=== PATIENT | male | born 1950 | race Caucasian/White ===

== ENCOUNTER 2025-08-26 09:36 | Outpatient (OUT) | payer MEDICARE, OTHER, SELFPAY ==
--- OUTSIDE RECORDS SUMMARY | 2025-08-25 13:50 | XMS_ITS | Patient Health Record ---
Author Organization [facility] Address [address], [place] [id number] Care Team Providers Care Staking Technician Name Role Phone Oscar Lindsay Primary Care Provider [phone] Amaury Larry Unavailable [phone] Lali Guadarrama Unavailable [phone] Allergies Allergen (clinical drug ingredient) Drug/Non Drug Allergy documented on EMR Reaction Allergy Type Onset Date Status prednisone Prednisone Anxiety Drug Allergy Active Results Component Value Reference Range Flag Notes Hemoglobin [id number]-[id number] Reviewed date:03/01/2025 06:05:55 AM Interpretation:6.2 Performing Lab:[facility], [facility], Phone - [phone], Director - PhDIsabell Notes/Report: Clinical Information:SRC: Hemoglobin A1c 6.2 4.8-5.6 % H . Prediabetes: 5.7 - 6.4 Diabetes: >6.4 Glycemic control for adults with diabetes: <7.0 CBC With Differential/Platel et-[id number] Reviewed date:03/01/2025 06:05:55 AM Interpretation:nl Performing Lab:[facility] [address], [place], Phone - [phone], Director - PhDRicha Notes/Report: Clinical Information:SRC: WBC 8.3 3.4-10.8 x10E3/uL RBC4.904.14-5.80 x10E6/tSSrfecggfqe71.513.0-17.7 g/pTFhayjnqzkw26.537.5-51.0 % FKX4248-72 fLMCH29.626.6-33.0 euTPYP46.931.5-35.7 g/dLRDW14.211.6-15.4 % Cglvinwip376065-739 x10E3/tCSqpflnhbovr90Vnv Estab. %Cacfif35Ypo Estab. % Iwlqcmbkd7Pch Estab. %Sqf1Jqn Estab. %Dstzz9Pva Estab. %Neutrophils (Absolute) 5.01.4-7.0 x10E3/uLLymphs (Absolute)2.30.7-3.1 x10E3/uLMonocytes(Absolute)0.6 0.1-0.9 x10E3/uLEos (Absolute)0.30.0-0.4 x10E3/uLBaso (Absolute)0.10.0-0.2 x10E3/uLImmature Yotcwnhbbhbo8Qod Estab. %Immature Grans (Abs)0.10.0-0.1 x10E3/uLCBC With Differential/Platelet-[id number] Reviewed date:06/01/2025 06:11:27 AM Interpretation: Performing Lab:[facility] [place], [address] [facility], [place], Phone - [phone], Director - Sary Notes/Report:WBC8.03.4-10.8 x10E3/uLRBC4.684.14-5.80 x10E6/mHCznwqzxedv65.313.0- 17.7 g/pIAcuftzhroi27.237.5-51.0 %LFH6272-48 fLMCH30.626.6-33.0 lcQLHS06.431.5- 35.7 g/dLRDW13.811.6-15.4 %Ijfyzxfsr077083-165 x10E3/gFIuxrtzoqges72Vvu Estab. % Lwnbta57Cpm Estab. %Hgbckmdow1Ios Estab. %Eib4Sbd Estab. %Dshre1Csd Estab. % Neutrophils (Absolute)4.91.4-7.0 x10E3/uLLymphs (Absolute)2.10.7-3.1 x10E3/uL Monocytes(Absolute)0.70.1-0.9 x10E3/uLEos (Absolute)0.30.0-0.4 x10E3/uLBaso (Absolute)0.10.0-0.2 x10E3/uLImmature Eevdhngeoknm9Rlc Estab. %Immature Grans (Abs)0.00.0-0.1 x10E3/uLVitamin D, 34-Tzigvye-[id number] Reviewed date:03/01/2025 06:05:55 AM Interpretation:Low [facility]forming [facility], [address] [place] [address], Phone - [phone], [facility]/Report: Clinical Information:SRC:Vitamin D, 25-Omvkaol12.130.0-100.0 ng/mLL Vitamin D deficiency has been defined by the [place] of [employer] and an Endocrine Society practice guideline as a level of serum 25-OH vitamin D less than 20 ng/mL (1,2). The Endocrine Society went on to further define vitamin D insufficiency as a level between 21 and 29 ng/mL (2). 1. IOM ([place] of [employer]). 2010. Dietary reference intakes for calcium and D. [place]: The National Academies Press. 2. Angélica MF, Dominguez NC, Nancy HENNING, et al. Evaluation, treatment, and prevention of vitamin D deficiency: an Endocrine Society clinical practice guideline. JCEM. 2010; 96(7):1911-30. HIV Ag/Ab with Reflex-[id number] Reviewed date:03/01/2025 06:05:55 AM Interpretation:Negative Performing Lab:[facility] [place] [address] [place] [address], Phone - [phone], Director - [facility] Notes/Report: Clinical Information:SRC:HIV Ab/p24 Ag ScreenNon ReactiveNon Reactive HIV-1/HIV-2 antibodies and HIV-1 p24 antigen were NOT detected. There is no laboratory evidence of HIV infection. HIV Negative C difficile Toxins A+B, EIA-[id number] Reviewed date:06/15/2025 02:00:05 PM Interpretation: Performing Lab[facility], Phone - [phone], Director - [facility] Notes/Report: Clinical Information:SRC:STC difficile Toxins A+B, EIANegativeNegativeLipid Panel-[id number] Reviewed date:03/01/2025 06:05:55 AM Interpretation:near nl Performing Lab:[facility] [place] [address] [place], [place] [address]ox [facility], Phone - [phone], Director - [facility] Notes/Report: Clinical Information:SRC:Cholesterol, Zzruu777268-536 mg/xYGnmrgcmstqmpe4555-266 mg/dLHHDL Ygwxkaaubyo53>39 mg/dLLVLDL Cholesterol Vrp438-34 mg/dLLDL Chol Calc (NIH)840-99 mg/dLComp. Metabolic Panel (14)-[id number] Reviewed date:03/01/2025 06:05:55 AM Interpretation:GFR 40, creatinine 1.74 Performing Lab:[facility], [address], Phone - [phone], Director - [facility] Notes/Report: Clinical Information:SRC:Cabnozc19561-77 mg/uRFNVO956-20 mg/dLHCreatinine1.74 0.76-1.27 mg/qUNfJGR95>59 mL/min/1.73LBUN/Creatinine Nwiew1553-37Pyyycu655043- 144 mmol/LPotassium4.63.5-5.2 mmol/SLdmxfebl01965-070 mmol/LCarbon Dioxide, Khknh7840-98 mmol/LCalcium8.98.6-10.2 mg/dLProtein, Total6.46.0-8.5 g/dLAlbumin 3.83.8-4.8 g/dLGlobulin, Total2.61.5-4.5 g/dLBilirubin, Total0.40.0-1.2 mg/dL Alkaline Wkmxlnojvrh4254-868 IU/LAST (SGOT)200-40 IU/LALT (SGPT)160-44 IU/LBasic Metabolic Panel (8)-[id number] Reviewed date:06/01/2025 06:11:27 AM Interpretation: Performing Lab:[facility], [address], [place], Phone - [phone], Director - [facility] Notes/Report:Kttrsnc5526-16 mg/sYSNG418-53 mg/dLHCreatinine2.190.76-1.27 mg/dLH eGFR30>59 mL/min/1.73LBUN/Creatinine Wchbq1507-36Jnbfue519559-321 mmol/L Potassium6.13.5-5.2 mmol/BNMrksmncc61934-729 mmol/LCarbon Dioxide, Mrzsr1950-43 mmol/LLCalcium9.48.6-10.2 mg/dLBasic Metabolic Panel (8)-[id number] Reviewed date:03/10/2025 08:23:54 AM Interpretation:stable Performing Lab:[facility] [place], [address] [facility], Phone - [phone], Director - [facility] Notes/Report: Clinical Information:SRC:Pwzgsnx7686-62 mg/jQAZE583-19 mg/dLCreatinine1.590.76- 1.27 mg/pOOfHPL72>59 mL/min/1.73LBUN/Creatinine Nicnb5564-52Rsnnje633170-918 mmol/LPotassium4.63.5-5.2 mmol/TDabgaibs03432-135 mmol/LHCarbon Dioxide, Total21 20-29 mmol/LCalcium8.98.6-10.2 mg/dLThyroid Harney Profile-[id number] Reviewed date:03/01/2025 06:05:55 AM Interpretation:wnl Performing Lab:[facility] [place], [address] [facility], [place], Phone - [phone], Director - [facility] Notes/Report: Clinical Information:SRC:TSH1.1500.450-4.500 uIU/mL No apparent thyroid disorder. Additional testing not indicated. In rare instances, Secondary Hypothyroidism as well as Subclinical Hypothyroidism have been reported in some patients with normal TSH values. XR CHEST 2 VIEWS Reviewed date:04/07/2025 07:42:27 AM Interpretation: Performing Lab: Notes/Report: XR KNEE 1 OR 2 VIEWS BILATERAL Reviewed date:04/07/2025 07:42:27 AM Interpretation: Performing Lab: Notes/Report: HX Colonoscopy Reviewed date:02/23/2025 06:49:29 PM Interpretation:diverticulosis and hyperplastic polyps, tubular adenoma no dysplasia Performing Lab: Notes/Report: diverticulosis and hyperplastic polyps, tubular adenoma no dysplasia Reason For Referral Reason gfr 30 Diagnosis 1 STAGE 3B CHRONIC KID RAMOS DISEASE (N18.32) Referral Organization [facility] Referring Provider First Name Oscar Referring Provider Last Name Angélica Referring Provider Speciality Physician Referred Provider [facility] Referred Provider Specialty Nephrology Referral Priority Routine Referral Appointment Date 07/10/2025 Medications Medication SIG (Take, Route, Frequency, Duration) Notes Start Date End Date Status CeleXA 10 MG Tablet 1 tablet Orally Once a day; Duration: 90 days 02/23/2025tiveLisinopril 10 MG Tablet1 tablet Orally Once a day; Duration: 90 days03/01/2025tiveCeleXA 20 MG Tablet1 tablet Orally Once a day; Duration: 90 days02/23/2025tiveFarxiga 5 MG Tablet1 tablet Orally Once a day; Duration: 04/24/2025tiveEliquis 5 MG Tablet1 tablet Orally twice a day; Duration: 90 daysActiveLoratadine 10 MG Tablet1 tablet Orally Once a day; Duration: 90 days 02/23/2025tiveAdvair Diskus 250-50 MCG/ACT Aerosol Powder Breath Activated1 puff Inhalation Twice a day; Duration: days02/23/2025tiveAlbuterol Sulfate HFA 108 (90 Base) MCG/ACT Aerosol Solution 1 puff as needed Inhalation every 4 hrs; Duration: 90 days As needed for shortness of breath or wheezing ActiveAllopurinol 100 MG Tablet1 tablet Orally Once a day; Duration: 90 days 02/23/2025tiveMetoprolol Tartrate 25 MG Tablet1 tablet with food Orally Twice a day; Duration: 90 daysActiveAtorvastatin Calcium 10 MG Tablet1 tablet Orally Once a day; Duration: 90 days02/23/2025tive Social History Tobacco Use: Social History Observation Description Date Details (start date - stop date) Never Smoker NA - NA Sex Assigned At : Social History Observation Description Sex Assigned At Male Social History Social DeterminantsSocial InfoQuestionAnswerNotesPRAPAREDate Completed/Updated: 02/23/2025What is your current housing situation?I have housingAre you worried about losing your housing?NoWhat is the highest level of school that you have finished?More than high schoolWhat is your current work situation?Otherwise unemployed but not seeking work (ex. student, retired, disabled, unpaid primary animal care assistant)In the past year, have you or any family members you live with been unable to get any of the following when it was really needed? Check all that applyI do not have problems meeting my needsHas lack of transportation kept you from medical appointments, meetings, work or from getting things needed for daily living?NoHow often do you see or talk to people that you care about and feel close to? (For example: talkingto friends on the phone, visiting friends or family, going to oriental orthodox or club meetings)More than 5 times a weekHow stressed are you? Stress is when someone feels tense, nervous, anxious, or can't sleep at nightbecause their mind is troubledNot at allIn the past year have you spent more than 2 nights in a row in a prison, intermediate, fpc center, orjuvenile correctional facility?Yes? What was your release date?5Are you a refugee?NoWhat country are you from?[place]Do you feel physically and emotionally safe where you currently live?YesIn the past year, have you been afraid of your partner or ex-partner?NoPRAPARE Score:3Drugs/Alcohol:Social Info QuestionAnswerNotesDrugsHave you used drugs other than those for medical reasons in the past 12 months?NoDrug/Alcohol:Social InfoQuestionAnswerNotesAUDIT-C (Standard)Did you have a drink containing alcohol in the past year?NoPoints0 InterpretationNegativeTobacco Use:Social InfoQuestionAnswerNotesTobacco Control (Standard)Tobacco use:NonsmokerTobacco use other than smoking:Are you an other tobacco user?NoAdditional DetailsCategorySocial InfoOptionsDetailsDrugs/Alcohol: Do you smoke marijuana?Denies Problems Problem Type SNOMED Code ICD Code Onset Dates Problem Status W/U Status Risk Notes Problem Prediabetes (114504711) Prediabetes (R73. 03) ActiveconfirmedProblemAllergic rhinitis (13285890)ALLERGIC RHINITIS (J30.9) ActiveconfirmedProblemChronic kidney disease stage 3(Confirmed) (N18.30)Active confirmedProblemAnxiety (42230237)ANXIETY (F41.9)ActiveconfirmedProblemCHRONIC KNEE PAIN (M25.569)ActiveconfirmedProblemAtrial fibrillation (disorder) (66785976)AFIB (I48.91)ActiveconfirmedProblemVitamin D deficiency (02612966) VITAMIN D DEFICIENCY (E55.9)ActiveconfirmedProblemHypertension (72505950) HYPERTENSION (I10)ActiveconfirmedProblemChronic kidney disease stage 3B (disorder) (727688687)STAGE 3B CHRONIC KIDNEY DISEASE (N18.32)Activeconfirmed ProblemCOPD - Chronic obstructive pulmonary disease (75695712)COPD (CHRONIC OBSTRUCTIVE PULMONARY DISEASE) (J44.9)ActiveconfirmedProblemMorbid obesity (278482001)MORBID OBESITY (E66.01)ActiveconfirmedProblemGout (03751859)GOUT (M10.9)ActiveconfirmedProblemAsthma (893893156)Asthma (J45.909)Activeconfirmed ProblemHistory of polyp of colon (situation) (500665573)Personal history of colonic polyps (L31381)2Activeconfirmed Vital Signs Heart Rate 41 /min 05/31/2025 Bnorfftmqfk88.8 degrees Hzxjqjzand27/01/2025Respiratory Rate18 /min03/09/2025 Blood pressure yivgbfbxm09 mm Hg05/31/20253001Hkfmqcdo44 %05/31/2025Weight-kg119.48 kg05/31/20252052Avrvtk29 in05/31/2025lood pressure vmousnta946 mm Hg05/31/2025 Adrelw458.4 lbs05/31/2025BMI51.44 kg/m205/31/2025 Procedures Procedure Date Ordered Date Performed Result Body Sit e In House EKG 05/31/2025 05/31/[address] tang note Encounters Encounter Location Date Provider Diagnosis [address] [place], [place] [id number] 02/23/2025 Lali Guadarrama Annual wellness visi t Z00.00 ; CHRONIC KNEE PAIN M25.569 ; ANXIETY F41.9 ; ALLERGIC RHINITIS J30.9 ; COPD (CHRONIC OBSTRUCTIVE PULMONARY DISEASE) J44.9 ; Asthma J45.909 ; GOUT M10.9 ; HYPERTENSION I10 ; SCREENING FOR DIABETES MELLITUS Z13.1 ; SCREENING FOR THYROID DISORDER Z13.29 ; Personal history of colonic polyps B94424 ; COLON CANCER SCREENING Z12.11 ; TOBACCO NON-USER Z78.9 ; MORBID OBESITY E66.01 ; DIETARY COUNSELING Z71.3 ; NEGATIVE DEPRESSION SCREENING Z13.31 and Encounter for examination of blood pressure without abnormal findings Z01.30 [facility] [address] [place], [place] [id number] 03/09/2025 Lali Guadarrama HYPERTENSION I10 ; Chronic kidney disease stage 3(Confirmed) N18.30 ; Unspecified injury of muscle and tendon of front wall of thorax, initial encounter S29.001A ; TOBACCO NON-USER Z78.9 ; MORBID OBESITY E66.01 ; DIETARY COUNSELING Z71.3 and Encounter for examination of blood pressure without abnormal findings Z01.[address] [id number] 04/24/2025 Oscar Cola HYPERTENSION I10 ; Prediabetes R73.03 ; MORBID OBESITY E66.01 ; DIETARY COUNSELING Z71.3 ; Encounter for examination of blood pressure without abnormal findings Z01.30 and KNEE PAIN M25.[address] [id number] 05/31/2025 Oscar Cola AFIB I48.91 ; Encounter for examination of blood pressure without abnormal findings Z01.30 ; MORBID OBESITY E66.01 and DIETARY COUNSELING Z71.[address] [id number] 03/01/2025 Lali Guadarrama Chronic kidney disea se stage 3(Confirmed) N18.30 and VITAMIN D DEFICIENCY E55.9 [facility] [address] [place] [id number] 03/10/2025 Lali Guadarrama [facility], [place] [id number]/31/2025David Cola Chronic kidney disease stage 3(Confirmed) N18.[address] [id number]/07/2025David ColaSTAGE 3B CHRONIC KIDNEY DISEASE N18.32 [facility] [place] [id number]/19/2025David ColaC. DIFFICILE DIARRHEA A04.72[facility] [place] [id number]/27/2025David ColaAFIB I48.91 ; COPD (CHRONIC OBSTRUCTIVE PULMONARY DISEASE) J44.9 ; HYPERTENSION I10 ; ALLERGIC RHINITIS J30.9 ; GOUT M10.9 and ANXIETY F41.9[facility], [place] [id number]/ Oscar [facility]aresHenry [facility] [address], [place] [id number]/ [place] [id number], [place] [id number]/ Oscar Lindsay Assessments Encounter Date Diagnosis (ICD Code) Assessment Notes Treatment Notes Treatment Clinical Notes Section Notes 05/31/2025 AFIB (ICD-10 - I48.91) ekg - sinus jxvkmkrjxve33/07/2025STAGE 3B CHRONIC KIDNEY DISEASE (ICD-10 - N18.32)04/24/2025Prediabetes (ICD-10 - R73.03)04/24/2025HYPERTENSION (ICD-10 - I10)06/21/2025FIB (ICD-10 - I48.91)02/23/2025nnual wellness visit (ICD-10 - Z00.00)Patient Education Given06/13/2025. DIFFICILE DIARRHEA (ICD-10 - A04.72) 02/23/2025HRONIC KNEE PAIN (ICD-10 - M25.569)Suspect OA.Patient Education Given 03/01/2025hronic kidney disease stage 3(Confirmed) (ICD-10 - N18.30)Thiazides are less effective at GFR <40. Lisinopril indicated for renal protection and BP control in CKD. Reassess BP & BMP in 1-2 weeks03/01/2025VITAMIN D DEFICIENCY (ICD-10 - E55.9)05/25/2025hronic kidney disease stage 3(Confirmed) (ICD-10 - N18.30)03/09/2025hronic kidney disease stage 3(Confirmed) (ICD-10 - N18.30) Patient counseling provided. Will continue to monitor clinically and manage BP. Advise low sodium diet. Avoid NSAIDs (naproxen or ibuprofen).Patient Education Given03/09/2025HYPERTENSION (ICD-10 - I10)BP appears well-controlled. Goal <130/80. Continue current medications.Patient Education Given04/24/2025MORBID OBESITY (ICD-10 - E66.01)03/09/2025Unspecified injury of muscle and tendon of front wall of thorax, initial encounter (ICD-10 - S29.001A)Recommend otc acetaminophen 500mg every 6-8 h. Gradual return to activity as tolerated. Avoid heavylifting twisting or straining for 1-2 weeks. Reassess in 2 weeks if symptoms persist or worsen.Patient Education Given05/31/2025Encounter for examination of blood pressure without abnormal findings (ICD-10 - Z01.30) 02/23/2025NXIETY (ICD-10 - F41.9)Controlled on current medications.Patient Education Given06/21/2025OPD (CHRONIC OBSTRUCTIVE PULMONARY DISEASE) (ICD-10 - J44.9)06/21/2025HYPERTENSION (ICD-10 - I10)05/31/2025MORBID OBESITY (ICD-10 - E66.01)02/23/2025LLERGIC RHINITIS (ICD-10 - J30.9)Patient Education Given 04/24/2025DIETARY COUNSELING (ICD-10 - Z71.3)03/09/2025TOBACCO NON-USER (ICD-10 - Z78.9)Smoking assessment completePatient Education Given03/09/2025MORBID OBESITY (ICD-10 - E66.01)Patient Education Given02/23/2025OPD (CHRONIC OBSTRUCTIVE PULMONARY DISEASE) (ICD-10 - J44.9)Patient Education Given06/21/2025 ALLERGIC RHINITIS (ICD-10 - J30.9)05/31/2025DIETARY COUNSELING (ICD-10 - Z71.3) 04/24/2025Encounter for examination of blood pressure without abnormal findings (ICD-10 - Z01.30)04/24/2025KNEE PAIN (ICD-10 - M25.569)06/21/2025GOUT (ICD-10 - M10.9)02/23/2025sthma (ICD-10 - J45.909)WIll add advair diskusPatient Education Given03/09/2025DIETARY COUNSELING (ICD-10 - Z71.3)Patient Education Given 03/09/2025Encounter for examination of blood pressure without abnormal findings (ICD-10 - Z01.30)Patient Education Given06/21/2025NXIETY (ICD-10 - F41.9) 02/23/2025GOUT (ICD-10 - M10.9)Patient Education Given02/23/2025HYPERTENSION (ICD-10 - I10)Patient Education Given02/23/2025SCREENING FOR DIABETES MELLITUS (ICD-10 - Z13.1)Patient Education Given02/23/2025SCREENING FOR THYROID DISORDER (ICD-10 - Z13.29)Patient Education Given02/23/2025Personal history of colonic polyps (ICD-10 - I60741)Dx per Colonoscopy 01/[address] [facility]. STIVEN for full report and subsequent recommendations.Patient Education Given 02/23/2025OLON CANCER SCREENING (ICD-10 - Z12.11)Patient Education Given 02/23/2025TOBACCO NON-USER (ICD-10 - Z78.9)Patient Education Given02/23/2025 MORBID OBESITY (ICD-10 - E66.01)Patient Education Given02/23/2025DIETARY COUNSELING (ICD-10 - Z71.3)Patient Education Given02/23/2025NEGATIVE DEPRESSION SCREENING (ICD-10 - Z13.31)Patient Education Given02/23/2025Encounter for examination of blood pressure without abnormal findings (ICD-10 - Z01.30)Patient Education Given03/09/2025OtherLearning about healthy weight education provided Patient Education ProvidedPatient Education Given04/24/2025OtherLearning about healthy weight education provided Patient Education Gdbfjfem79/06/2025Other Learning about healthy weight education provided Patient Education Provided Plan Of Treatment Next Appt Details Provider Name:Oscar Lindsay, 11:30:00 AM, [facility] [address], [place], [id number], Insurance Providers Payer Name Payer Address Payer Phone Subscriber Number Group Number Insured Name Patient Relationship to Insured Coverage Start Date Coverage End Date D [facility] [employer] [address] [address] [place], [place] [id number] Kumar Roche Self - patient is the insured 5 M [facility] SupplementPO [address] [place] [address] [id number], KennethSphilomena - patient is the [id number] [place] MedicaidPO [address] [place] [id number] Girish Rochephilomena - patient is the [id number] 2025M Medicaid MedicalPO [address] [place], [place] [id number], KennethSphilomena - patient is the [id number] Medicare CGS Part A PrimaryPO Box [place], [place] [id number], KennethSphilomena - patient is the [id number] Medical (General) History Medical History History ICD Code HTN GoutCKDAsthmaCOPDSinusitisSurgical History Surgery Date(Month/Year) Lithroplasty Umbilical Hernia
--- OUTSIDE RECORDS SUMMARY | 2025-08-26 09:39 | XMS_ITS | Patient Health Record ---
Author Organization [facility] Address [address] [place], [place] [address] Care Team Providers Care Supervisory Training Specialist Name Role Phone Oscar Lindsay Primary Care Provider [phone] Amaury Larry Unavailable [phone] Lali Guadarrama Unavailable [phone] Allergies Allergen (clinical drug ingredient) Drug/Non Drug Allergy documented on EMR Reaction Allergy Type Onset Date Status prednisone Prednisone Anxiety Drug Allergy Active Results Component Value Reference Range Flag Notes Hemoglobin [id number] Reviewed date:03/01/2025 06:05:55 AM Interpretation:6.2 Performing Lab:[facility], [address] [employer] [facility], Phone - [phone], Director - PhDIsabell Notes/Report: Clinical Information:SRC: Hemoglobin A1c 6.2 4.8-5.6 % H . Prediabetes: 5.7 - 6.4 Diabetes: >6.4 Glycemic control for adults with diabetes: <7.0 CBC With Differential/Platel et-[id number] Reviewed date:03/01/2025 06:05:55 AM Interpretation:nl Performing Lab:[facility], [address], [place], Phone - [phone], Director - PhDRicha Notes/Report: Clinical Information:SRC: WBC 8.3 3.4-10.8 x10E3/uL RBC4.904.14-5.80 x10E6/bFUymujlmbjn23.513.0-17.7 g/cDAvokuuvbkz75.537.5-51.0 % KKR7512-41 fLMCH29.626.6-33.0 lpJFGP60.931.5-35.7 g/dLRDW14.211.6-15.4 % Kaxoyplth384034-118 x10E3/oKNicupeextoo19Ypa Estab. %Chahzz62Oep Estab. % Gwwaastvf6Wev Estab. %Uyu4Qts Estab. %Lhyvn8Jgw Estab. %Neutrophils (Absolute) 5.01.4-7.0 x10E3/uLLymphs (Absolute)2.30.7-3.1 x10E3/uLMonocytes(Absolute)0.6 0.1-0.9 x10E3/uLEos (Absolute)0.30.0-0.4 x10E3/uLBaso (Absolute)0.10.0-0.2 x10E3/uLImmature Sbbdfsjkvlvb8Hmn Estab. %Immature Grans (Abs)0.10.0-0.1 x10E3/uLCBC With Differential/Platelet-[id number] Reviewed date:06/01/2025 06:11:27 AM Interpretation: Performing Lab:[facility] [place], [address] [facility], [place], Phone - [phone], Director - Sary Notes/Report:WBC8.03.4-10.8 x10E3/uLRBC4.684.14-5.80 x10E6/uYBsagtkiuag52.313.0- 17.7 g/eWIdnzturmxf59.237.5-51.0 %LRX4223-23 fLMCH30.626.6-33.0 wmBUZE81.431.5- 35.7 g/dLRDW13.811.6-15.4 %Suhxnziik934285-663 x10E3/rKPcsroyibtfx77Ngw Estab. % Hrvevs26Gbv Estab. %Kzpaccvhj6Lws Estab. %Zns7Jlp Estab. %Svwwb4Yjg Estab. % Neutrophils (Absolute)4.91.4-7.0 x10E3/uLLymphs (Absolute)2.10.7-3.1 x10E3/uL Monocytes(Absolute)0.70.1-0.9 x10E3/uLEos (Absolute)0.30.0-0.4 x10E3/uLBaso (Absolute)0.10.0-0.2 x10E3/uLImmature Zgnmvzkksdew9Kuk Estab. %Immature Grans (Abs)0.00.0-0.1 x10E3/uLVitamin D, 50-Hznlrxj-[id number] Reviewed date:03/01/2025 06:05:55 AM Interpretation:Low Performing Lab:[facility], [address] [place] [address], Phone - [phone], Director - [facility] Notes/Report: Clinical Information:SRC:Vitamin D, 25-Gtywfkh61.130.0-100.0 ng/mLL Vitamin D deficiency has been defined by the [place] of [employer] and an Endocrine Society practice guideline as a level of serum 25-OH vitamin D less than 20 ng/mL (1,2). The Endocrine Society went on to further define vitamin D insufficiency as a level between 21 and 29 ng/mL (2). 1. IOM ([place] of Medicine). 2010. Dietary reference intakes for calcium and D. [place]: The National Academies Press. 2. Angélica MF, Dominguez NC, Nancy HENNING, et al. Evaluation, treatment, and prevention of vitamin D deficiency: an Endocrine Society clinical practice guideline. JCEM. 2010; 96(7):1911-30. HIV Ag/Ab with Reflex-[id number] Reviewed date:03/01/2025 06:05:55 AM Interpretation:Negative Performing Lab:[facility] [place] [facility] [address] [place] [address], Phone - [phone], Director - Psychiatric Notes/Report: Clinical Information:SRC:HIV Ab/p24 Ag ScreenNon ReactiveNon Reactive HIV-1/HIV-2 antibodies and HIV-1 p24 antigen were NOT detected. There is no laboratory evidence of HIV infection. HIV Negative C difficile Toxins A+B, EIA-[id number] Reviewed date:06/15/2025 02:00:05 PM Interpretation: Performing Lab:[facility], Phone - [phone], Director - [facility] Notes/Report: Clinical Information:SRC:STC difficile Toxins A+B, EIANegativeNegativeLipid Panel-[id number] Reviewed date:03/01/2025 06:05:55 AM Interpretation:near nl Performing Lab:[facility] [place] [facility] [address] [place], [place] [address]ox [facility], Phone - [phone], Director - [facility] Notes/Report: Clinical Information:SRC:Cholesterol, Sgynf152059-442 mg/lKXorawulzefmfi9355-208 mg/dLHHDL Eiawxowrtro81>39 mg/dLLVLDL Cholesterol Atk375-51 mg/dLLDL Chol Calc (NIH)840-99 mg/dLComp. Metabolic Panel ([id number] Reviewed date:03/01/2025 06:05:55 AM Interpretation:GFR 40, creatinine 1.74 Performing Lab:[facility], [address] [employer] [facility], Phone - [phone], Director - [facility] Notes/Report: Clinical Information:SRC:Dkernny25840-18 mg/eBRMRU203-91 mg/dLHCreatinine1.74 0.76-1.27 mg/mTGwPNN41>59 mL/min/1.73LBUN/Creatinine Zlird3708-12Qlfvqw937746- 144 mmol/LPotassium4.63.5-5.2 mmol/EEnvnjtjy73999-538 mmol/LCarbon Dioxide, Gqvpr3843-48 mmol/LCalcium8.98.6-10.2 mg/dLProtein, Total6.46.0-8.5 g/dLAlbumin 3.83.8-4.8 g/dLGlobulin, Total2.61.5-4.5 g/dLBilirubin, Total0.40.0-1.2 mg/dL Alkaline Wtktybdbhju9686-479 IU/LAST (SGOT)200-40 IU/LALT (SGPT)160-44 IU/LBasic Metabolic Panel (8)-[id number] Reviewed date:06/01/2025 06:11:27 AM Interpretation: Performing Lab:[facility], [address], [place], Phone - [phone], Director - [facility] Notes/Report:Mrmmvoh4984-42 mg/mXCGM080-66 mg/dLHCreatinine2.190.76-1.27 mg/dLH eGFR30>59 mL/min/1.73LBUN/Creatinine Efhmu8102-82Bqytmi374332-689 mmol/L Potassium6.13.5-5.2 mmol/CSNzjaizza13060-045 mmol/LCarbon Dioxide, Emmnc9731-37 mmol/LLCalcium9.48.6-10.2 mg/dLBasic Metabolic Panel (8)-[id number] Reviewed date:03/10/2025 08:23:54 AM Interpretation:stable Performing Lab:[facility] [place], [address] [facility], Phone - [phone], Director - Psychiatric Notes/Report: Clinical Information:SRC:Ihudhnb1514-25 mg/lHLXM778-65 mg/dLCreatinine1.590.76- 1.27 mg/rOCmSXF22>59 mL/min/1.73LBUN/Creatinine Pjeqc4115-00Tdslur255870-200 mmol/LPotassium4.63.5-5.2 mmol/FUplejbtf05653-617 mmol/LHCarbon Dioxide, Total21 20-29 mmol/LCalcium8.98.6-10.2 mg/dLThyroid Rabun Profile-[id number] Reviewed date:03/01/2025 06:05:55 AM Interpretation:wnl Performing Lab:[facility] [place], [address] [facility], [place], Phone - [phone], Director - Psychiatric Notes/Report: Clinical Information:SRC:TSH1.1500.450-4.500 uIU/mL No apparent thyroid [...] CHRONIC KID RAMOS DISEASE (N18.32) Referral Organization [facility] Referring Provider First Name Oscar Referring Provider Last Name Agnélica Referring Provider Speciality Physician Referred Provider Kidney [...] work (ex. 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 Stress is when someone feels tense, nervous, anxious, or can't sleep at nightbecause their mind is troubledNot at allIn the past year have you spent more than 2 nights in a row in a care home, shelter, snf center, orjuvenile correctional facility?Yes? What was your [...] Status W/U Status Risk Notes Problem Prediabetes (832004033) Prediabetes (R73. 03) ActiveconfirmedProblemAllergic rhinitis (44418122)ALLERGIC RHINITIS (J30.9) ActiveconfirmedProblemChronic kidney disease stage 3(Confirmed) (N18.30)Active confirmedProblemAnxiety (80612862)ANXIETY (F41.9)ActiveconfirmedProblemCHRONIC KNEE PAIN (M25.569)ActiveconfirmedProblemAtrial fibrillation (disorder) (40359610)AFIB (I48.91)ActiveconfirmedProblemVitamin D deficiency (65592926) VITAMIN D DEFICIENCY (E55.9)ActiveconfirmedProblemHypertension (32226231) HYPERTENSION (I10)ActiveconfirmedProblemChronic kidney disease stage 3B (disorder) (167545133)STAGE 3B CHRONIC KIDNEY DISEASE (N18.32)Activeconfirmed ProblemCOPD - Chronic obstructive pulmonary disease (21596052)COPD (CHRONIC OBSTRUCTIVE PULMONARY DISEASE) (J44.9)ActiveconfirmedProblemMorbid obesity (123554170)MORBID OBESITY (E66.01)ActiveconfirmedProblemGout (04296272)GOUT (M10.9)ActiveconfirmedProblemAsthma (904932539)Asthma (J45.909)Activeconfirmed ProblemHistory of polyp of colon (situation) (192659770)Personal history of colonic polyps (A81990)2Activeconfirmed Vital Signs Heart Rate 41 /min 05/31/2025 Lhavjikssln04.8 degrees Paqadvedey28/01/2025Respiratory Rate18 /min03/09/2025 Tqyyhgnd79 %05/31/2025lood pressure fwuvazjkz84 mm Hg05/31/2025Weight-kg119.48 kg05/31/20250609Pcdzwf09 in05/31/2025lood pressure mm Hg05/31/2025 Kcvnvp254.4 lbs05/31/2025BMI51.44 kg/m205/31/2025 Procedures Procedure Date Ordered Date Performed Result Body Sit e In House EKG 05/31/2025 05/31/[address] tang note Encounters Encounter Location Date Provider Diagnosis [address] [place], [place] [phone] 02/23/2025 Lali Bondson Annual wellness visi t Z00.00 ; CHRONIC KNEE PAIN M25.569 ; ANXIETY F41.9 ; ALLERGIC RHINITIS J30.9 ; COPD (CHRONIC OBSTRUCTIVE PULMONARY DISEASE) J44.9 ; Asthma J45.909 ; GOUT M10.9 ; HYPERTENSION I10 ; SCREENING FOR DIABETES MELLITUS Z13.1 ; SCREENING FOR THYROID DISORDER Z13.29 ; Personal history of colonic polyps Y35514 ; COLON CANCER SCREENING Z12.11 ; TOBACCO NON-USER Z78.9 ; MORBID OBESITY E66.01 ; DIETARY COUNSELING Z71.3 ; NEGATIVE DEPRESSION SCREENING Z13.31 and Encounter for examination of blood pressure without abnormal findings Z01.30 [facility] [address] [place], [place] [phone] 03/09/2025 Lali Guadarrama HYPERTENSION I10 ; Chronic kidney disease stage 3(Confirmed) N18.30 ; Unspecified injury of muscle and tendon of front wall of thorax, initial encounter S29.001A ; TOBACCO NON-USER Z78.9 ; MORBID OBESITY E66.01 ; DIETARY COUNSELING Z71.3 and Encounter for examination of blood pressure without abnormal findings Z01.[address] [id number] 04/24/2025 Oscar Cola HYPERTENSION I10 ; Prediabetes R73.03 ; MORBID OBESITY E66.01 ; DIETARY COUNSELING Z71.3 ; Encounter for examination of blood pressure without abnormal findings Z01.30 and KNEE PAIN M25.[address] [id number] 05/31/2025 Oscar Cola AFIB I48.91 ; Encounter for examination of blood pressure without abnormal findings Z01.30 ; MORBID OBESITY E66.01 and DIETARY COUNSELING Z71.[address] [id number] 03/01/2025 Lali Guadarrama Chronic kidney disea se stage 3(Confirmed) N18.30 and VITAMIN D DEFICIENCY E55.9 [facility] [address], [place] [id number] 03/10/2025 Lailema Guadarrama [facility], [place] [id number]/31/2025David Cola Chronic kidney disease stage 3(Confirmed) N18.[address] [id number]/07/2025David ColaSTAGE 3B CHRONIC KIDNEY DISEASE N18.32 [facility] [place] [id number]/19/2025David ColaC. DIFFICILE DIARRHEA A04.72[facility] [place] [id number]/27/2025David ColaAFIB I48.91 ; COPD (CHRONIC OBSTRUCTIVE PULMONARY DISEASE) J44.9 ; HYPERTENSION I10 ; ALLERGIC RHINITIS J30.9 ; GOUT M10.9 and ANXIETY F41.9[facility] [address] [place], [place] [id number]/ Oscar ColaLincoln [address], [place] [phone]/ Oscar ColaLincoln [address] [place], [place] [phone]/ Oscar Lindsay Assessments Encounter Date Diagnosis (ICD Code) Assessment Notes Treatment Notes Treatment Clinical Notes Section Notes 06/01/2025 STAGE 3B CHRONIC KIDNEY DISEASE (ICD-10 - N18.32) 05/31/2025FIB (ICD-10 - I48.91)ekg - sinus pzgywcrsndr14/07/2025hronic kidney disease stage 3(Confirmed) (ICD-10 - N18.30)Thiazides are less effective at GFR <40. Lisinopril indicated for renal protection and BP control in CKD. Reassess BP & BMP in 1-2 weeks03/01/2025VITAMIN D DEFICIENCY (ICD-10 - E55.9)02/23/2025 Annual wellness visit (ICD-10 - Z00.00)Patient Education Given06/13/2025. DIFFICILE DIARRHEA (ICD-10 - A04.72)05/25/2025hronic kidney disease stage 3(Confirmed) (ICD-10 - N18.30)03/09/2025hronic kidney disease stage 3(Confirmed) (ICD-10 - N18.30)Patient counseling provided. Will continue to monitor clinically and manage BP. Advise low sodium diet. Avoid NSAIDs (naproxen or ibuprofen).Patient Education Given03/09/2025HYPERTENSION (ICD-10 - I10)BP appears well-controlled. Goal <130/80. Continue current medications.Patient Education Given02/23/2025HRONIC KNEE PAIN (ICD-10 - M25.569)Suspect OA.Patient Education Given06/21/2025FIB (ICD-10 - I48.91)04/24/2025Prediabetes (ICD-10 - R73.03)04/24/2025HYPERTENSION (ICD-10 - I10)06/21/2025OPD (CHRONIC OBSTRUCTIVE PULMONARY DISEASE) (ICD-10 - J44.9)04/24/2025MORBID OBESITY (ICD-10 - E66.01) 03/09/2025Unspecified injury of muscle and tendon of front wall of thorax, initial encounter (ICD-10 - S29.001A)Recommend otc acetaminophen 500mg every 6-8 h. Gradual return to activity as tolerated. Avoid heavylifting twisting or straining for 1-2 weeks. Reassess in 2 weeks if symptoms persist or worsen. Patient Education Given02/23/2025NXIETY (ICD-10 - F41.9)Controlled on current medications.Patient Education Given05/31/2025Encounter for examination of blood pressure without abnormal findings (ICD-10 - Z01.30)02/23/2025LLERGIC RHINITIS (ICD-10 - J30.9)Patient Education Given03/09/2025TOBACCO NON-USER (ICD-10 - Z78.9)Smoking assessment completePatient Education Given04/24/2025DIETARY COUNSELING (ICD-10 - Z71.3)06/21/2025HYPERTENSION (ICD-10 - I10)05/31/2025MORBID OBESITY (ICD-10 - E66.01)04/24/2025Encounter for examination of blood pressure without abnormal findings (ICD-10 - Z01.30)05/31/2025DIETARY COUNSELING (ICD-10 - Z71.3)06/21/2025LLERGIC RHINITIS (ICD-10 - J30.9)02/23/2025OPD (CHRONIC OBSTRUCTIVE PULMONARY DISEASE) (ICD-10 - J44.9)Patient Education Given03/09/2025 MORBID OBESITY (ICD-10 - E66.01)Patient Education Given02/23/2025sthma (ICD-10 - J45.909)WIll add advair diskusPatient Education Given03/09/2025DIETARY COUNSELING (ICD-10 - Z71.3)Patient Education Given04/24/2025KNEE PAIN (ICD-10 - M25.569)06/21/2025GOUT (ICD-10 - M10.9)03/09/2025Encounter for examination of blood pressure without abnormal findings (ICD-10 - Z01.30)Patient Education Given06/21/2025NXIETY (ICD-10 - F41.9)02/23/2025GOUT (ICD-10 - M10.9)Patient Education Given02/23/2025HYPERTENSION (ICD-10 - I10)Patient Education Given 02/23/2025SCREENING FOR DIABETES MELLITUS (ICD-10 - Z13.1)Patient Education Given02/23/2025SCREENING FOR THYROID DISORDER (ICD-10 - Z13.29)Patient Education Given02/23/2025Personal history of colonic polyps (ICD-10 - W20340)Dx per Colonoscopy 01/2023 at [facility]. STIVEN for full report and subsequent recommendations.Patient Education Given02/23/2025OLON CANCER SCREENING (ICD-10 - Z12.11)Patient Education Given02/23/2025TOBACCO NON-USER (ICD-10 - Z78.9)Patient Education Given02/23/2025MORBID OBESITY (ICD-10 - E66.01)Patient Education Given02/23/2025DIETARY COUNSELING (ICD-10 - Z71.3) Patient Education Given02/23/2025NEGATIVE DEPRESSION SCREENING (ICD-10 - Z13.31) Patient Education Given02/23/2025Encounter for examination of blood pressure without abnormal findings (ICD-10 - Z01.30)Patient Education Given03/09/2025 OtherLearning about healthy weight education provided Patient Education Provided Patient Education Given04/24/2025OtherLearning about healthy weight education provided Patient Education Serpulbz58/06/2025OtherLearning about healthy weight education provided Patient Education Provided Plan Of Treatment Next Appt Details Provider Name:Oscar Lindsay, 11:30:00 AM, [facility] [address], [place], [phone], Insurance Providers Payer Name Payer Address Payer Phone Subscriber Number Group Number Insured Name Patient Relationship to Insured Coverage Start Date Coverage End Date D [facility] [employer] Commercial [address] [address] [place], [place] [id number] Melchor, Kumar Self - patient is the insured 5 M [facility] SupplementPO [address] [place] [address] [id number], KennethSelf - patient is the [id number] 2025M [place] MedicaidPO [address] [facility] [place] [id number] Girish Rocheelf - patient is the [id number] 2025M Medicaid MedicalPO [address] [place], [place] [id number], KennethSelf - patient is the [id number] Medicare CGS Part A PrimaryPO [address] [place], [place] [id number], KennethSelf - patient is the [id number] Medical (General) History Medical History History ICD Code HTN GoutCKDAsthmaCOPDSinusitisSurgical History Surgery Date(Month/Year) Lithroplasty Umbilical Hernia
[2025-08-26 09:58] LABS: Hematocrit 45.2 % (42.0-54.0); Hemoglobin 14.2 g/dL (14.0-18.0); Immature Granulocytes Abs Auto 0.01 10^3/uL (0.00-0.03); Immature Granulocytes Pct Auto 0.1 % (0.0-0.5); Lymphocytes Absolute Auto 2.0 10^3/uL (1.2-3.8); Mean Corpuscular HGB Conc 31.4 g/dL (29.9-35.2); Mean Corpuscular Hemoglobin 30.4 pg (25.9-34.0); Mean Corpuscular Volume 96.8 fL (80.0-94.0); Platelet Count 319 10^3/uL (150-450); Red Blood Count 4.67 10^6/uL (4.70-6.10); White Blood Count 8.4 10^3/uL (4.0-11.0)
[2025-08-26 10:46] LABS: Microalbum Creatinine Ratio Ur 238.1 mg/g (0.0-29.9)
[2025-08-26 10:52] LABS: Alanine Aminotransferase 24 U/L (16-63); Albumin Globulin Ratio 0.7; Albumin Level 3.0 g/dL (3.4-5.0); Alkaline Phosphatase 83 U/L (46-116); Anion Gap 12.5; Aspartate Amino Transferase 19 U/L (15-37); Blood Urea Nitrogen 26.0 mg/dL (7.0-18.0); Calcium 8.7 mg/dL (8.5-10.1); Carbon Dioxide 26.1 mmol/L (21.0-32.0); Chloride 107 mmol/L (98-107); Cholesterol 131 mg/dL (<=200); Estimated GFR (African America 54 (>=60 mL/min/1.73m^2); Estimated GFR (Non-African Ame 44 (>=60 mL/min/1.73m^2); Globulin 4.2 g/dL; Glucose 104 mg/dL (74-106); HDL Cholesterol 35 mg/dL (40-60); Potassium 4.6 mmol/L (3.5-5.1); Sodium 141 mmol/L (136-145); Total Protein 7.2 g/dL (6.4-8.2); Triglycerides 136 mg/dL (<=150); VLDL CHOLESTEROL 27.2 mg/dL
== END 2025-08-26 09:37 | disposition home or self-care (01) ==
PROVIDERS: PCP Nurse Practitioner Family; Visit Provider Nurse Practitioner Family
DX: E78.5 Hyperlipidemia, unspecified (principal); E11.9 Type 2 diabetes mellitus without complications; I10 Essential (primary) hypertension
CPT/HCPCS: 36415; 80053; 80061; 82043; 82570; 83036; 85025